=== PATIENT | female | born 1995 | race Caucasian/White ===

== ENCOUNTER 2020-05-06 04:11 | Emergency (ER) | payer OTHER ==
[~2020-05-06] VITALS: Ht 152.4 cm; Wt 97.5 kg
--- NOTE | 2020-05-06 04:15 | NUR ---
C COLLAR PLACED BY DR. MCGRAW.
[2020-05-06] MEDS ORDERED: fentaNYL INJECTION 100 MCG/2 ML AMP ONE (04:25)
[2020-05-06] MEDS ORDERED: ONDANSETRON 4 MG/2 ML (SDV) Z0FRAN ONE (04:32)
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
[2020-05-06 04:41] LABS: HEMOGLOBIN 13.1 g/dL (11.5-16.0); WHITE BLOOD COUNT 16.1 10^3/uL (4.3-11.0)
[2020-05-06 04:44] LABS: ALBUMIN 4.5 GM/DL (3.2-4.5); CHLORIDE 103 MMOL/L (98-107); POTASSIUM 3.9 MMOL/L (3.6-5.0); SODIUM 137 MMOL/L (135-145)
[2020-05-06 04:45] LABS: CALCIUM 9.7 MG/DL (8.5-10.1)
[2020-05-06] MEDS ORDERED: LACTATED RINGERS 1,000 ML IV ONE ×2 (04:45→09:05)
[2020-05-06] MEDS ORDERED: fentaNYL INJECTION 100 MCG/2 ML AMP IVP ONE ×2 (04:45→05:15)
[2020-05-06] MEDS ORDERED: ONDANSETRON 4 MG/2 ML (SDV) Z0FRAN IVP ONE (04:45)
[2020-05-06 04:47] LABS: GLUCOSE 140 MG/DL (70-105); TOTAL PROTEIN 7.9 GM/DL (6.4-8.2)
[2020-05-06 04:48] LABS: CARBON DIOXIDE 19 MMOL/L (21-32)
[2020-05-06 04:49] LABS: BILIRUBIN,TOTAL 0.1 MG/DL (0.1-1.0)
[2020-05-06 04:50] LABS: ALKALINE PHOSPHATASE 87 U/L (40-136)
[2020-05-06 04:51] LABS: CREATININE SERUM 0.82 MG/DL (0.60-1.30); GFR ESTIMATED > 60
[2020-05-06 04:52] LABS: BILIRUBIN,DIRECT 0.1 MG/DL (0.0-0.3); BUN/CREATININE RATIO 12
[2020-05-06 04:53] LABS: ALANINE AMINOTRANSFERASE 54 U/L (0-55)
--- NOTE | 2020-05-06 04:56 | NUR ---
DR. MCGRAW UPDATED MOTHER WITH CONSENT FROM PT.
--- NOTE | 2020-05-06 05:13 | NUR ---
DR. FERRELL (TRAUMA SURGEON FIBER OPTIC TECHNICIAN) HERE AT THIS TIME.
--- NOTE | 2020-05-06 05:48 | NUR ---
CRITICAL CARE TIME FROM ARRIVAL AT [address] AT 0548 RN REQUIRED WITH PT DURING CT/XRAY.
--- NOTE | 2020-05-06 05:52 | NUR ---
ETCO2 37.
[2020-05-06 06:17] LABS: BILIRUBIN,URINE NEGATIVE (NEGATIVE); CLARITY,URINE CLEAR; COLOR,URINE YELLOW; GLUCOSE, URINE (UA) NEGATIVE (NEGATIVE); KETONES,URINE NEGATIVE (NEGATIVE); LEUKOCYTE ESTERASE ,URINE NEGATIVE (NEGATIVE); NITRITE,URINE NEGATIVE (NEGATIVE); PROTEIN,URINE NEGATIVE (NEGATIVE)
[2020-05-06 06:29] LABS: AMPHETAMINE SCREEN, URINE NEGATIVE (NEGATIVE); BACTERIA,URINE NEGATIVE /HPF; BARBITURATE SCREEN URINE NEGATIVE (NEGATIVE); BENZODIAZEPINES SCREEN URINE NEGATIVE (NEGATIVE); CANNABINOID SCREEN, URINE POSITIVE (NEGATIVE); COCAINE SCREEN URINE NEGATIVE (NEGATIVE); METHADONE STAT NEGATIVE (NEGATIVE); METHAMPHETAMINE SCREEN URINE S NEGATIVE (NEGATIVE); OPIATE SCREEN URINE NEGATIVE (NEGATIVE); OXYCODONE STAT NEGATIVE (NEGATIVE); PROPOXYPHENE STAT NEGATIVE (NEGATIVE); SQUAMOUS EPITHELIAL CELL,UR 0-2 /HPF; TRICYCLIC ANTIDEPRESSANTS SCRE NEGATIVE (NEGATIVE)
[2020-05-06] MEDS ORDERED: KETOROLAC 30 MG/ML VIAL IVP ONE (06:30)
--- NOTE | 2020-05-06 07:14 | NUR ---
PATIENT GOT UP AND WAS ABLE TO WALK WITHOUT PROBLEM PER DR HERNANDEZ. WAS GIVEN DISPOSABLE SCRUBS TO WEAR HOME. DR HERNANDEZ GAVE HER A SURG CAP TO KEEP GLASS IN TILL SHE GETS HOME AND ABLE TO SHOWER.
[2020-05-06] MEDS ORDERED: HYDROcodone/APAP 5 MG/325 MG (LORTAB) TAB PO ONE (07:15)
[2020-05-06] MEDS ORDERED: ORPHENADRINE 60 MG/2 ML (NORFLEX) AMP (ED ONLY) IV ONE (07:15)
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
[2020-05-06] MEDS ORDERED: ACHD5005 PO ×2 (07:25→07:29)
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
[2020-05-06 07:35] VITALS: BP 139/83
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
== END 2020-05-06 07:35 | disposition home or self-care (01) ==
LOC: ER 04:13
DX: S06.0X0A Concussion without loss of consciousness, initial encounter (principal); S40.011A Contusion of right shoulder, initial encounter; S60.221A Contusion of right hand, initial encounter; S80.212A Abrasion, left knee, initial encounter; M25.561 Pain in right knee; M25.551 Pain in right hip; M25.571 Pain in right ankle and joints of right foot; M25.572 Pain in left ankle and joints of left foot; M62.830 Muscle spasm of back; R40.2360 Coma scale, best motor response, obeys commands, unspecified time; R40.2140 Coma scale, eyes open, spontaneous, unspecified time; R40.2250 Coma scale, best verbal response, oriented, unspecified time; E66.9 Obesity, unspecified; F17.210 Nicotine dependence, cigarettes, uncomplicated; V89.2XXA Person injured in unspecified motor-vehicle accident, traffic, initial encounter
CPT/HCPCS: 51701; 70450; 71045; 71260; 72125; 72170; 73030; 73130; 73502; 73562; 73610 ×2; 74177; 80048; 80076; 80306; 81000; 84703; 85027; 93005; 93041; 94762; 99291; 99292; G0390; G0480; 36415; 80320